=== PATIENT | female | born 1950 | race Native Hawaiian/Other Pacific Islander ===

== ENCOUNTER 2018-10-10 09:23 | Outpatient (CLI) | payer MEDICARE | END 2018-10-10 09:24 | disposition home or self-care (01) | LOC: C.CARD 09:23 | DX: R06.02 Shortness of breath (principal); I10 Essential (primary) hypertension ==

== ENCOUNTER 2018-10-16 08:35 | Outpatient (CLI) | payer MEDICARE | END 2018-10-16 08:36 | disposition home or self-care (01) | LOC: C.CARD 08:35 ==